=== PATIENT | male | born 1980 | race American Indian/Alaskan Native ===

== ENCOUNTER 2022-04-23 20:15 | Emergency (ER) | payer OTHER ==
[~2022-04-23] VITALS: Ht 180.3 cm; Wt 87.0 kg
[~2022-04-23 20:15] MED LIST: ALBUTEROL2.5 MG/3 M IH; ATIVAN1 MG PO; AZITHROMYCIN500 MG PO; DUONEB 0.5 MG-33 ML INH; KEFLEX500 MG PO; NORCO 10-325 T1 EACH PO; NORCO 5-325 TA1 EACH PO; PREDNISONE20 MG PO; PROAIR HFA8.5 GM IH; VENTOLIN HFA18 GM IH
== END 2022-04-23 23:40 | disposition home or self-care (01) ==
LOC: ED 20:15
DX: S93.401A Sprain of unspecified ligament of right ankle, initial encounter (principal); M25.561 Pain in right knee; J45.909 Unspecified asthma, uncomplicated; F17.200 Nicotine dependence, unspecified, uncomplicated; W17.89XA Other fall from one level to another, initial encounter; Z23 Encounter for immunization; Z88.5 Allergy status to narcotic agent; Z79.899 Other long term (current) drug therapy
CPT/HCPCS: 73590; 73610; 73630; 90714; A9270

== ENCOUNTER 2024-10-01 10:31 | Emergency (ER) | payer OTHER ==
[~2024-10-01] VITALS: Ht 180.3 cm; Wt 99.3 kg
[2024-10-01] MEDS ORDERED: OXYCODONE/APAP 5/325 TAB PO ONE (11:00)
[2024-10-01] MEDS ORDERED: FLUORESCEIN SOD 1 EA STRP OS ONE (11:00)
[2024-10-01] MEDS ORDERED: DIPHTH,PERTUSS(ACELL),TET VAC 0.5 ML SYRINGE IM ONE (11:00)
[2024-10-01] MEDS ORDERED: TETRACAINE HCL 0.5% 4 ML BTL OS SCH (11:00)
[2024-10-01] MEDS ORDERED: CEFTRIAXONE/SODIUM CHLORIDE 2 GM/100 ML PIGGYBACK IV ONE (12:45)
[2024-10-01] MEDS ORDERED: LACTATED RINGER'S 1,000 ML IV ONE (12:45)
[2024-10-01] MEDS ORDERED: HYDROmorphone HCL 1 MG/ML SYR IV ONE ×3 (12:45→15:45)
[2024-10-01] MEDS ORDERED: ondansetron HCL 4 MG/2 ML VIAL IV ONE (12:45)
[2024-10-01 13:00] LABS: EOSINOPHILS 0.6 % (0-6); HEMATOCRIT 36.1 % (35.0-50.0); HEMOGLOBIN 11.9 g/dL (12.0-18.0); LYMPHOCYTES 28.5 % (24-44); MCH 28.1 (27-36); MCV 85.1 fl (81-99); MONOCYTES 8.5 % (0-12); NEUTROPHILS 61.4 % (39-80); PLATELET COUNT 379 K/uL (140-440); RBC 4.25 M/ul (4.3-5.7)
[2024-10-01 13:19] LABS: ALBUMIN 3.5 g/dL (3.4-5.0); ALBUMIN/GLOBULIN RATIO 0.83 (1.1-2.4); ANION GAP 18.1 (7-21); BILIRUBIN, TOTAL 0.3 ng/dL (0.2-1.0); BUN/CREATININE RATIO 8.33 (6.0-28.6); CALCIUM 8.4 mg/dL (8.5-10.1); CREATININE, SERUM 0.72 mg/dL (0.70-1.30); POTASSIUM 4.1 mmol/L (3.5-5.1); PROTEIN, TOTAL 7.7 g/dL (6.4-8.2)
[2024-10-01 13:37] LABS: ABO O; ANTIBODY SCREEN NEGATIVE; RH POSITIVE
[2024-10-01 16:50] VITALS: BP 114/81
== END 2024-10-01 16:50 | disposition short-term general hospital (02) ==
LOC: ED 10:31
PROVIDERS: Emergency Medicine
DX: S02.413A LeFort III fracture, initial encounter for closed fracture (principal); J45.909 Unspecified asthma, uncomplicated; F17.200 Nicotine dependence, unspecified, uncomplicated; Z96.611 Presence of right artificial shoulder joint; W55.12XA Struck by horse, initial encounter
CPT/HCPCS: 36415; 70450; 70486; 72125; 80053; 80307; 82553; 83605; 85025; 86850; 86900; 86901; 90471; 90715; 96365; 96375; 96376; 99284-25; G0480; J0696; J1171; J2405; J7121

== ENCOUNTER 2025-02-11 10:53 | Emergency (ER) | payer OTHER ==
[~2025-02-11] VITALS: Ht 180.3 cm; Wt 87.9 kg
[2025-02-11] MEDS ORDERED: PANTOPRAZOLE SODIUM 40 MG/10 ML VIAL IV ONE (11:15)
[2025-02-11] MEDS ORDERED: ondansetron HCL 4 MG/2 ML VIAL IV ONE (11:15)
[2025-02-11 11:26] LABS: BASOPHILS 0.3 % (0-2); HEMATOCRIT 24.2 % (35.0-50.0); HEMOGLOBIN 8.3 g/dL (12.0-18.0); LYMPHOCYTES 6.8 % (24-44); MCH 28.1 (27-36); MCHC 34.3 g/dl (30-36); MCV 81.8 fl (81-99); MONOCYTES 5.4 % (0-12); NEUTROPHILS 87.5 % (39-80); PLATELET COUNT 288 K/uL (140-440); RBC 2.96 M/ul (4.3-5.7); RDW 21.4 (10.5-15.0)
[2025-02-11] MEDS ORDERED: HYDROmorphone HCL 1 MG/ML SYR IV PRN (11:30)
[2025-02-11 11:37] LABS: INR 1.02 (0.80-1.30); PARTIAL THROMBOPLASTIN TIME 24.9 Sec (22.9-41.3); PROTIME 12.8 Sec (11.2-14.2)
[2025-02-11 11:41] LABS: ALBUMIN 3.5 g/dL (3.4-5.0); ALBUMIN/GLOBULIN RATIO 0.9 (1.1-2.4); BILIRUBIN, TOTAL 1.5 mg/dL (0.2-1.0); BUN/CREATININE RATIO 30.21 (6.0-28.6); CALCIUM 8.7 mg/dL (8.5-10.1); CREATININE, SERUM 1.39 mg/dL (0.70-1.30); POTASSIUM 2.8 mmol/L (3.5-5.1); PROTEIN, TOTAL 7.4 g/dL (6.4-8.2)
[2025-02-11] MEDS ORDERED: SODIUM CHLORIDE 0.9% 1,000 ML IV ONE (11:45)
[2025-02-11 12:01] LABS: ANION GAP 16.8 (7-21)
[2025-02-11 12:06] LABS: ABO O; ANTIBODY SCREEN NEGATIVE; IS CROSSMATCH COMPATIBLE; RH POSITIVE
[2025-02-11 12:25] LABS: BASOPHILS 0.2 % (0-2); HEMATOCRIT 20.3 % (35.0-50.0); LYMPHOCYTES 4.3 % (24-44); MCH 28.1 (27-36); MCHC 34.5 g/dl (30-36); MCV 81.3 fl (81-99); MONOCYTES 5.4 % (0-12); NEUTROPHILS 90.1 % (39-80); PLATELET COUNT 236 K/uL (140-440); RDW 21.6 (10.5-15.0)
[2025-02-11 12:47] LABS: IS CROSSMATCH COMPATIBLE
[2025-02-11 13:25] VITALS: BP 146/108
== END 2025-02-11 13:43 | disposition other institution, planned readmission (95) ==
LOC: ED 10:53
PROVIDERS: Emergency Medicine
DX: K92.2 Gastrointestinal hemorrhage, unspecified (principal); F17.200 Nicotine dependence, unspecified, uncomplicated
CPT/HCPCS: 36415; 36430; 80053; 85025; 85610; 85730; 86850; 86900; 86901; 86922; 96374; 96375; 96376; 99285-25; J1171; J2405; J2470; J7030; P9016

== ENCOUNTER 2025-04-26 13:22 | Emergency (ER) | payer SELFPAY ==
[~2025-04-26] VITALS: Ht 180.3 cm; Wt 88.2 kg
[2025-04-26 14:50] VITALS: BP 163/111
[2025-04-26] MEDS ORDERED: HYDROCODONE/ACETA 7.5/325 TAB PO ONE (15:00)
[2025-04-26] MEDS ORDERED: PENICILLIN V POTASSIUM 500 MG TAB PO ONE (15:00)
== END 2025-04-26 14:50 | disposition other institution, planned readmission (95) ==
LOC: ED 13:22
DX: K04.7 Periapical abscess without sinus (principal); I10 Essential (primary) hypertension; J45.909 Unspecified asthma, uncomplicated; F17.200 Nicotine dependence, unspecified, uncomplicated; Z53.29 Procedure and treatment not carried out because of patient's decision for other reasons
CPT/HCPCS: 99282